=== PATIENT | male | born 1955 | race Caucasian/White ===

== ENCOUNTER 2017-11-01 14:47 | Emergency (ER) | payer BC ==
[2017-11-01 17:49] VITALS: BP 146/76
[2017-11-01] MEDS ORDERED: Oseltamivir CAP* 75 MG CAP PO ONE (19:07)
--- NOTE | 2017-11-01 19:12 | UC ---
Levi Bennett Stephanie, scribed for Isidro Vinson MD on 11/01/17 at 1831 . FLU HPI - HPI Summary HPI Summary: The pt is a 62 y/o M presenting to with c/o fever that bega last night. Symptoms include cough, RASMUSSEN, rhinorrhea and chills. The pt denies myalgia and sore throat. - History of Current Complaint Chief Complaint: UCGeneralIllness Stated Complaint: COUGH/CONGESTION Time Seen by Provider: 11/01/17 18:19 Hx Obtained From: Patient Onset/Duration: Lasting Days - 1, Still Present Severity Currently: None Pain Intensity: 0 Pain Scale Used: 0-10 Numeric Associated Signs & Symptoms: Positive: Fever, Cough, Nasal Congestion, Headache. Negative: Myalgia, Sore Throat - Allergy/Home Medications Allergies/Adverse Reactions: Allergies Allergy/AdvReac Type Severity Reaction Status Date / Time No Known Allergies Allergy Verified 11/01/17 17:50 Home Medications: Home Medications [place] 100 gm MC DAILY WITH MEAL 11/01/17 [History Confirmed 11/01/17] PMH/Surg Hx/FS Hx/Imm Hx Cardiovascular History: Atrial Fibrillation - Surgical History Surgical History: Yes Surgery Procedure, Year, and Place: hernia - Family History Known Family History: Positive: Other - cancer - Social History Occupation: Employed Full-time Lives: With Family Alcohol Use: Weekly Substance Use Type: Marijuana Smoking Status (MU): Former Smoker Review of Systems Constitutional: Fever Eyes: Negative ENT: Nasal Discharge Respiratory: Cough Cardiovascular: Negative Gastrointestinal: Negative Genitourinary: Negative Motor: Negative Neurovascular: Negative Musculoskeletal: Negative Neurological: Headache Psychological: Negative All Other Systems Reviewed And Are Negative: Yes Physical Exam Triage Information Reviewed: Yes Vital Signs: Initial Vital Signs Temp 101.0 F 11/01/17 17:42 Pulse 84 11/01/17 17:42 Resp 16 11/01/17 17:42 BP 146/76 11/01/17 17:42 Pulse Ox 100 11/01/17 17:42 Vital Signs Reviewed: Yes - Additional Comments General: well-appearing, no pain distress Skin: warm, color reflects adequate perfusion, dry Head: normal Eyes: EOMI, KELVIN ENT: rhinorrhea, mild posterior pharynx erythema Neck: supple, nontender Respiratory: CTA, breath sounds present Cardiovascular: RRR Abdomen: soft, nontender Bowel: present Musculoskeletal: normal, strength/ROM intact Neurological: normal, sensory/motor intact, A&O x3 Psychological: affect/mood appropriate Flu Course/Dx - Course Course Of Treatment: PATIENT DECLINED IBUPROFEN/ACETAMINOPHEN IN CLINIC - Differential Dx/Diagnosis Provider Diagnoses: INFLUENZA Discharge - Discharge Plan Condition: Stable Disposition: HOME Prescriptions: Oseltamivir CAP* [Tamiflu CAP*] 75 mg PO BID #9 cap Patient Education Materials: Influenza (ED) Referrals: Mario Espinosa MD [Primary Care Provider] - Additional Instructions: FOLLOW UP WITH YOUR DOCTOR. GET RECHECKED FOR ANY WORSENING OF YOUR CONDITION OR QUESTIONS OR CONCERNS. The documentation as recorded by the Levi del angel Stephanie accurately reflects the service I personally performed and the decisions made by me, Isidro Vinson MD.
== END 2017-11-01 19:20 | disposition home or self-care (01) ==
LOC: UCEAST 14:47
DX: J11.1 Influenza due to unidentified influenza virus with other respiratory manifestations (principal); I48.91 Unspecified atrial fibrillation; F12.90 Cannabis use, unspecified, uncomplicated; Z87.891 Personal history of nicotine dependence
CPT/HCPCS: 87502; 99212; A9270-GY; G0463